=== PATIENT | female | born 1985 | race Caucasian/White ===

== ENCOUNTER 2024-12-13 10:11 | Emergency (ER) | payer OTHER, SELFPAY ==
[2024-12-13 10:27] VITALS: BP 151/103
[2024-12-13 11:26] VITALS: BMI 21.1
--- NOTE | 2024-12-13 11:51 | ED.GENMED ---
History of Present Illness
General
Chief Complaint: Headache
Source: patient
Exam Limitations: none
Time Seen by Provider: 12/13/24 11:22
Nursing documentation reviewed up to this point in time: agreed with
History of Present Illness
History of Present Illness:
39-year-old male past medical history of PTSD borderline personality disorder bipolar disorder depression headaches hypertension presents to the ER for evaluation of headache. Patient reports she' has had headaches my entire life.' Because of her
past she is afraid of doctors. She does have a family doctor and saw him in January. She was prescribed Imitrex for headaches and recommended to get an MRI. She did not get an MRI yet. She has an appoint with neurologist but not until February.
She complains of a headache for the past several days to the frontal aspect of her head associated mild light sensitivity. She took Imitrex this morning without relief. She last took ibuprofen yesterday without relief. She drove here to the
hospital.
This headache is consistent with her prior headaches. She denies any recent trauma/chiropractic manipulation. She denies any visual disturbance presently. Typically she has light sensitivity and has mild light sensitivity with this headache as
well. She denies any recent illness fever or chills.
She had a prior MRI in 2019 which showed a probable tiny venous angioma in the right parietal lobe.
Past History
Past History
ED Past Medical History: None
ED Past Surgical History: Orthopedic
Social History
Tobacco: Smoker
Alcohol: None
Drug: Marijuana
Personal: Single
Living: with family
Employment: Employed
Phy Exam
General Physical Exam
General Presentation: no apparent distress
General age: appears stated age
General Skin: warm and dry
General Habitus: normal
General Mental: alert
General Hydration: appears well hydrated
Neurological Exam
Neurological Exam: alert, oriented x3, no motor deficits and no sensory deficits
Cerebellar
Cerebellar Function: normal finger to nose
Musculoskeletal Exam
Musculoskeletal Exam: full ROM
Skin Exam
Skin Exam: normal color and warm/dry
Course
Orders/Labs/Results
Orders:
Orders
12/13/24 11:50
Acetaminophen 1000MG/100Ml [Ofirmev] 1,000 mg in 100 ml IV ONCE
Acetaminophen IV Indication:: ED Narcotic Naive Pt-ONCE
Ketorolac [Toradol] 15 mg IV NOW STA
Vital Signs
Initial and Last Documented VS:
Initial Vital Signs
Temp Pulse Resp BP Pulse Ox
98.5 F 59 18 151/103 99
12/13/24 10:27 12/13/24 10:27 12/13/24 10:27 12/13/24 10:27 12/13/24 10:27
Last Documented Vital Signs
Temp Pulse Resp BP Pulse Ox
98.5 F 55 14 145/89 100
12/13/24 10:27 12/13/24 13:40 12/13/24 13:40 12/13/24 13:40 12/13/24 11:54
MDM/Problems Addressed
Differential Diagnosis Includes:
not limited to: migraines, headache
MDM/Problems Addressed:
Patient is a 39-year-old female history of headaches, migraines presents for headache. She did drive herself to the ER. She presented in no acute distress with a normal neurological exam. She did try Imitrex did not work. She has an outpatient
neurologist appointment that is not till February. Headache consistent with history of migraines. Patient was given Toradol fluids and Tylenol which did improve symptoms. She is well-appearing and stable for discharge home. Patient has had
imaging in the past.
Chronic conditions affecting care:
migraines, PTSD
*Pulse Oximetry
SaO2: 100
Oxygen Mode of Delivery: Room air
Patient hypoxic: no
*Critical Care Note
Total Time (30-74mins, 75-104mins- exclusive of procedures): Not Applicable
ED Attending Note
-
Portions of this chart may have been created with voice recognition software.� Occasional wrong word or��sound alike� substitutions may have occurred due to the inherent limitations of voice recognition software.
Discharge Plan
Departure
Patient Disposition: Home (Routine Discharge)
Date of Disposition: 12/13/24
Time of Disposition: 14:50
Patient with high blood pressure during this ER visit?: Yes
Condition: Fair
Covid-19: Not Applicable
Discharge Problem:
Headache
Instructions: Headache, Adult (DC), BLOOD PRESSURE
Prescriptions:
No Action
Calcium
1 tab PO DAILY
Magnesium
1 tab PO DAILY
Turmeric
1 cap PO DAILY
Referrals:
Duane Sharpe PA [Family Provider, Family Practice]
Activity Restrictions/Additional Instructions:
As discussed please continue to follow-up with your family doctor for reevaluation of headaches and your neurologist as scheduled. Return if any worsening of symptoms.
Interventions
Interventions:
*Risk Screen - Suicide Last Done: 12/13/24 10:27
*General Assessment Last Done: 12/13/24 10:27
ED- Neurological Assessment Last Done: 12/13/24 11:27
Discharge Date and Time
Print Language: OCCITAN
[2024-12-13] MEDS: TORADOL 15 MG IV (11:54)
[2024-12-13] MEDS: OFIRMEV 100 IV (11:55)
[2024-12-13 13:40] VITALS: BP 145/89
[2024-12-13 14:56] VITALS: BP 129/78
== END 2024-12-13 15:04 | disposition home or self-care (01) ==
LOC: EMR 10:11
PROVIDERS: EMERGENCY PHYSICIAN Student in an Organized Health Care Education/Training Program; FAMILY PHYSICIAN Physician Assistant
DX: R51.9 Headache, unspecified (principal); I10 Essential (primary) hypertension; F43.10 Post-traumatic stress disorder, unspecified; F60.3 Borderline personality disorder; F31.9 Bipolar disorder, unspecified; F17.200 Nicotine dependence, unspecified, uncomplicated
CPT/HCPCS: 99284; 96374; 96375